=== PATIENT | male | born 1985 | race Caucasian/White ===

== ENCOUNTER 2016-10-21 11:45 | Emergency (ER) | payer OTHER ==
[2016-10-21 12:18] VITALS: BP 116/68; PULSE 60; TEMP 97.7; BMI 25.3
[2016-10-21] MEDS ORDERED: ACETAMINOPHEN 325 MG TABLET (FP) PO ONE (12:20)
[2016-10-21] MEDS ORDERED: ACETAMINOPHEN 325 MG TABLET (FP) ONE (12:48)
--- NOTE | 2016-10-21 12:56 | PDOC ---
History of Present Illness - General Chief Complaint: Syncope/Near Syncope Stated Complaint: FAINTED, STRUCK RIGHT FACE ON EXAM TABLE Time Seen by Provider: 10/21/16 12:00 History Source: Patient, Significant Other Exam Limitations: No Limitations - History of Present Illness Initial Comments: 10/21/16 12:56 CHIEF COMPLAINT: Syncope with laceration HISTORY OF PRESENT ILLNESS: Patient is a 30-year-old man with no significant past medical history. He once had a near syncopal episode in the setting of a stressful situation with a high pressure examination. However, he did not fully pass out at that time. Today he went to the doctor's office for a routine physical examination and a general checkup. As part of this evaluation, he was having his blood drawn. Shortly after getting his blood drawn he felt lightheaded and then passed out, hitting the right side of his head against the examination table. He fell to the floor and was unconscious for an uncertain period of time. EMS was called and he was brought to the emergency department with a laceration lateral to the right eye, a nasal abrasion, and a diffuse headache. Currently, he complains of headache diffusely throughout his head. There is no change in vision. There is pain just lateral to the right eye, but no pain in the eyes. There is no change in vision. There is no neck pain. REVIEW OF SYSTEMS: GENERAL/CONSTITUTIONAL: No fever or chills. No weakness. No weight change. HEAD, EYES, EARS, NOSE AND THROAT: No change in vision. No ear pain or discharge. No sore throat. CARDIOVASCULAR: No chest pain or shortness of breath. RESPIRATORY: No cough, wheezing, or hemoptysis. GASTROINTESTINAL: No nausea, vomiting, diarrhea or constipation. No rectal bleeding. GENITOURINARY: No dysuria, frequency, or change in urination. MUSCULOSKELETAL: No joint or muscle swelling or pain. No neck or back pain. SKIN AND BREASTS: No rash or easy bruising. NEUROLOGIC: Positive headache, no vertigo, positive loss of consciousness, no loss of sensation. No tongue biting. No urinary incontinence. PSYCHIATRIC: No depression or anxiety. ENDOCRINE: No increased thirst. No abnormal weight change. HEMATOLOGIC/LYMPHATIC: No anemia, easy bleeding, or history of blood clots. ALLERGIC/IMMUNOLOGIC: No hives or skin allergy. No latex allergy. Past History - Past Medical History Allergies/Adverse Reactions: Allergies Allergy/AdvReac Type Severity Reaction Status Date / Time Sulfa (Sulfonamide Allergy Unknown Verified 10/21/16 12:11 Antibiotics) Home Medications: Ambulatory Orders NK [No Known Home Medication] 10/21/16 - Immunization History TDAP Vaccination: Yes (2014) - Psycho/Social/Smoking Cessation Hx Anxiety: No Suicidal Ideation: No Smoking History: Never smoked Hx Alcohol Use: Yes (1 PER WEEK) Drug/Substance Use Hx: No Substance Use Type: None *Physical Exam - Vital Signs Last Vital Signs Temp Pulse Resp BP Pulse Ox 97.7 F 60 15 116/68 99 10/21/16 11:55 10/21/16 11:55 10/21/16 11:55 10/21/16 11:55 10/21/16 11:55 - Physical Exam Comments: 10/21/16 13:00 GENERAL: The patient is awake, alert, and fully oriented, in no acute distress. HEAD: There is an abrasion over the bridge of the nose with no bony tenderness. The nostrils are clear with no septal hematoma. The right temporal region and right inferior orbital region has some ecchymosis. There is no bony orbital tenderness. There is a small laceration approximately 2 mm just lateral to the right eye. EYES: Pupils equal, round and reactive to light, extraocular movements intact, sclera anicteric, conjunctiva clear. Visual acuity normal. No subconjunctival hematoma. ENT: Ears normal, nares patent, oropharynx clear without exudates. Moist mucous membranes. NECK: Normal range of motion, supple without lymphadenopathy, JVD, or masses. No tenderness to the cervical spine. LUNGS: Breath sounds equal, clear to auscultation bilaterally. No wheezes, and no crackles. HEART: Regular rate and rhythm, normal S1 and S2 without murmur, rub or gallop. ABDOMEN: Soft, nontender, normoactive bowel sounds. No guarding, no rebound. No masses. EXTREMITIES: Normal range of motion, no edema. No clubbing or cyanosis. No cords, erythema, or tenderness. NEURO: Mental status: The patient is oriented x3. Cranial nerves: Cranial nerves are intact Motor: The upper extremities are 5 over 5 in all muscle groups. The lower extremities are 5 over 5 in all muscle groups. Sensation: Sensation is intact to light touch throughout. Cerebellar: Ayugum-dzrcbv-ahqi is normal in both upper extremities. Heel-knee- rasheed is normal in both lower extremities. Reflexes: 2+ and symmetric in the upper and lower extremities. Gait: Normal. Heel and toe walking are normal. Tandem gait is normal. PSYCH: Normal mood, normal affect. SKIN: Warm, Dry, normal turgor. Laceration to the right eye as noted above. Heart Score/ECG Review - ECG Intrepretation Comment:: 10/21/16 12:55 Twelve-lead EKG shows normal sinus rhythm at a rate of 61 bpm. The axis is normal. The intervals are normal. Is no acute ST elevation or depression. There are no abnormal Q waves. There is mild early repolarization change throughout all 12 leads. Impression: Normal 12-lead EKG. ED Treatment Course - RADIOLOGY Radiology Studies Ordered: Category Date Time Status HEAD CT WITHOUT CONTRAST [CT] Stat CT Scan 10/21/16 12:21 Ordered - Medications Given in the ED: ED Medications Discontinued Medications Generic Name Dose Route Start Last Admin Trade Name Freq PRN Reason Stop Dose Admin Acetaminophen 650 mg 10/21/16 12:20 10/21/16 12:49 Tylenol - PO 10/21/16 12:21 650 mg ONCE ONE Administration Medical Decision Making - Medical Decision Making 10/21/16 13:41 Patient is a 30-year-old man who presents with a syncopal episode after having his blood drawn in the doctor's office. He took a bad fall and hit the right side of his head on the examination table. He was unconscious on the floor in the doctor's office and then awoke and came to the ED. His clinical symptoms in the ED include a headache. His physical examination is notable for a tiny laceration lateral to the right eye. The eye examination is otherwise normal. He does have ecchymosis under the right eye which developed over his course in the ED. He also has a superficial abrasion to the nose. Twelve-lead EKG shows normal sinus rhythm with no acute changes. CT scan of the head shows no fractures and no internal injuries. Impression: Cerebral concussion with loss of consciousness. Patient will be discharged home. *DC/Admit/Observation/Transfer Diagnosis at time of Disposition: Syncope Qualifiers: Syncope type: vasovagal syncope Qualified Code(s): R55 - Syncope and collapse Cerebral contusion and laceration with loss of consciousness Qualifiers: Encounter type: initial encounter Laterality: right Qualified Code(s): S06.319A - Contusion and laceration of right cerebrum with loss of consciousness of unspecified duration, initial encounter - Discharge Dispostion Disposition: HOME Condition at time of disposition: Stable Admit: No - Referrals Referrals: Paola Aguilar MD [Primary Care Provider] - 2 Days - Patient Instructions Printed Discharge Instructions: DI for Syncope in Adults (Fainting), DI for Concussion Additional Instructions: You were evaluated today for a blackout after blood drawing. This is called vasovagal syncope. You also sustained an injury to your head with a concussion from the blackout. Rest at home. Eat lightly. Take Tylenol as needed for headache. Follow-up with your doctor in 48 hours if the symptoms are not resolving. Return to the emergency department for any severe or progressive symptoms.
--- NOTE | 2016-10-24 09:25 | EKG ---
Test Reason : Blood Pressure : / mmHG Vent. Rate : 061 BPM Atrial Rate : 061 BPM P-R Int : 174 ms QRS Dur : 096 ms QT Int : 418 ms P-R-T Axes : 070 052 041 degrees QTc Int : 420 ms NORMAL SINUS RHYTHM NO PREVIOUS ECGS AVAILABLE Confirmed by MD LISA, JASON ([id number]) on 10/24/2016 9:24:58 AM Referred By: DR BEEBE Confirmed By:JASON GONZALEZ MD
== END 2016-10-21 13:55 | disposition home or self-care (01) ==
LOC: FER 11:45
DX: R55 Syncope and collapse (principal); S06.319A Contusion and laceration of right cerebrum with loss of consciousness of unspecified duration, initial encounter; W22.09XA Striking against other stationary object, initial encounter; Y93.89 Activity, other specified; Y92.531 Health care provider office as the place of occurrence of the external cause
CPT/HCPCS: 70450-TC; 93005; 99283-25